=== PATIENT | male | born 1960 | race Hispanic/Latino ===

== ENCOUNTER 2024-09-21 09:12 | Emergency (ER) | payer MEDICARE, OTHER ==
[~2024-09-21] VITALS: Ht 177.8 cm; Wt 79.1 kg
[2024-09-21 09:44] LABS: BASOPHILS 0.8 % (0-2); EOSINOPHILS 2.3 % (0-6); HEMATOCRIT 37.7 % (35.0-50.0); HEMOGLOBIN 12.5 g/dL (12.0-18.0); LYMPHOCYTES 20.9 % (24-44); MCH 24.9 (27-36); MCHC 33.1 g/dl (30-36); MCV 75.2 fl (81-99); MONOCYTES 7.3 % (0-12); NEUTROPHILS 68.7 % (39-80); RBC 5.01 M/ul (4.3-5.7); RDW 14.7 (10.5-15.0)
[2024-09-21 10:00] LABS: ALBUMIN 3.8 g/dL (3.4-5.0); ALBUMIN/GLOBULIN RATIO 0.9 (1.1-2.4); ANION GAP 8.5 (7-21); BILIRUBIN, TOTAL 0.4 ng/dL (0.2-1.0); BUN/CREATININE RATIO 13.08 (6.0-28.6); CALCIUM 8.8 mg/dL (8.5-10.1); CREATININE, SERUM 1.07 mg/dL (0.70-1.30); POTASSIUM 3.5 mmol/L (3.5-5.1)
[2024-09-21 10:07] LABS: PLATELET COUNT 126 K/uL (140-440)
[2024-09-21 10:12] LABS: LACTIC ACID, BLOOD 1.4 mmol/L (0.4-2.0)
[2024-09-21 11:23] LABS: BILIRUBIN, URINE NEGATIVE (negative); BLOOD/HGB, URINE SMALL (Negative); KETONE, URINE NEGATIVE (Negative); LEUK ESTERASE, URINE NEGATIVE (negative); NITRITE, URINE NEGATIVE (negative)
[2024-09-21 11:29] LABS: BACTERIA, URINE NONE SEEN /hpf (negative); CASTS, URINE NONE SEEN \\lpf; COLLECTION TYPE, URINE CLEAN CATCH; CRYSTALS, URINE NONE SEEN (0-1+); EPITHELIAL CELLS, URINE 0 /lpf (0-1+); RED BLOOD CELLS, URINE 0-1 /hpf (0-5); REFLEX CULTURE, URINE No (No); WHITE BLOOD CELLS, URINE 0-1 /HPF (0-5)
[2024-09-21] MEDS ORDERED: OXYCODONE/APAP 5/325 TAB PO ONE (12:15)
[2024-09-21] MEDS ORDERED: FIBER625 MG PO (14:05)
[2024-09-21] MEDS ORDERED: PERCOCET 5-3251 EACH PO (14:05)
[2024-09-21] MEDS ORDERED: SENNA4.4 MG/2.5 PO (14:05)
[2024-09-21] MEDS ORDERED: ONDANSETRON ODT8 MG PO (14:05)
[2024-09-21] MEDS ORDERED: OXYCODONE HCL5 MG PO (14:06)
[2024-09-21 14:42] VITALS: BP 124/77
== END 2024-09-21 14:40 | disposition home or self-care (01) ==
LOC: ED 09:12
PROVIDERS: Emergency Medicine
DX: C19 Malignant neoplasm of rectosigmoid junction (principal); C78.7 Secondary malignant neoplasm of liver and intrahepatic bile duct
CPT/HCPCS: 36415; 74177; 80053; 81001; 83605; 83690; 85025; 85060; 99284-25; Q9967